=== PATIENT | female | born 1945 | race Caucasian/White ===

== ENCOUNTER 2017-10-20 08:00 | Day surgery (SDC) | payer BC ==
[~2017-10-20] VITALS: Ht 160 cm; Wt 91.2 kg
[~2017-10-20 08:00] MED LIST: ASCO500 PO; B Complex1 EAC2; CHOL10002 PO; Daily Multiple1 EACH PO; ENOX40I SC; Estrace Vagin42.5 GM; Estrace Vagin42.5 GM TOP; FISH OIL 1,0001 EAC1 PO; GABA100 PO; IBUP600 PO; METF500 PO; MOMENI; OXYC5 PO; PRAV20 PO; PROM25 PO; Pseudoephedrine30 MG PO; TRAM50 PO; Vitamin B Comple1 EA PO
== END 2017-10-20 10:16 | disposition home or self-care (01) ==
LOC: ORSCSDS 08:00
PROVIDERS: Surgery
PROC: 0DJD8ZZ Inspection of Lower Intestinal Tract, Via Natural or Artificial Opening Endoscopic (ICD-10-PCS; principal; 2017-10-20 09:15)
DX: Z12.11 Encounter for screening for malignant neoplasm of colon (principal); Z86.010 Personal history of colon polyps; I10 Essential (primary) hypertension; E78.5 Hyperlipidemia, unspecified; E11.9 Type 2 diabetes mellitus without complications; Z79.84 Long term (current) use of oral hypoglycemic drugs; Z79.899 Other long term (current) drug therapy
CPT/HCPCS: 82947; J7120

== ENCOUNTER 2023-03-14 09:37 | Day surgery (SDC) | payer OTHER ==
[~2023-03-14] VITALS: Ht 157.5 cm; Wt 78.2 kg
[~2023-03-14 09:37] MED LIST changes: +Lactated Ringer's 1,000 ML IV ONE
[2023-03-14] MEDS ORDERED: Clindamycin 900mg in D5W 50ML 50 ML IV ONE (10:05)
[2023-03-14] MEDS ORDERED: Vancomycin HCL 1,000 MG in NS 100 ML IV SCH (10:15)
[2023-03-14] MEDS ORDERED: ACET325 PO (10:16)
[2023-03-14] MEDS ORDERED: Lactated Ringer's 1,000 ML IV ONE (10:29)
--- NOTE | 2023-03-14 10:54 | NUR ---
03/14/23 1054 Samina Valladares SKIN TEST DONE ON R FOREARM. DUE TO SHELLFISH ALLERGY. WILL MONITOR FOR ANY REACTION.
[2023-03-14] MEDS ORDERED: propofoL 20 ML IV ONE (11:34)
[2023-03-14] MEDS ORDERED: FentaNYL Citrate 50 MCG/ML 2 ML Injection ONE (11:34)
[2023-03-14] MEDS ORDERED: Ondansetron HCl 2 MG / ML 2ML Vial ONE (11:47)
[2023-03-14] MEDS ORDERED: Dexamethasone Sod Phos 10 MG/ML 1ML VIAL ONE (11:47)
[2023-03-14] MEDS ORDERED: Glycopyrrolate 0.2 MG/ML 5ML VIAL ONE (11:55)
[2023-03-14] MEDS ORDERED: Phenylephrine HCl 100 MCG/ML-NS 10MLSYR (1MG/10ML) ONE (11:56)
[2023-03-14] MEDS ORDERED: Ropivacaine 0.5% HCl/Pf 5 MG/ML 20ML VIAL INFIL ONE (12:05)
--- NOTE | 2023-03-14 12:36 | NUR ---
03/14/23 1236 MIGUEL MENG AT BEDSIDE. O2 SAT 92% ON RA AT PRESENT
[2023-03-14 12:41] VITALS: BP 133/77
== END 2023-03-14 13:00 | disposition home or self-care (01) ==
LOC: ORSCSDS 09:37
PROVIDERS: Orthopaedic Surgery
PROC: 01N50ZZ Release Median Nerve, Open Approach (ICD-10-PCS; principal; 2023-03-14 11:15)
DX: G56.03 Carpal tunnel syndrome, bilateral upper limbs (principal); I10 Essential (primary) hypertension; E78.5 Hyperlipidemia, unspecified; E11.9 Type 2 diabetes mellitus without complications; K21.9 Gastro-esophageal reflux disease without esophagitis; Z79.84 Long term (current) use of oral hypoglycemic drugs; Z79.899 Other long term (current) drug therapy
CPT/HCPCS: 82947; J1100; J2371; J2405; J2704; J2795; J3010; J3370; J7120

== ENCOUNTER 2023-08-30 07:21 | Day surgery (SDC) | payer OTHER ==
[~2023-08-30] VITALS: Ht 157.5 cm; Wt 74.4 kg
[~2023-08-30 07:21] MED LIST changes: +ACET325 PO; +propofoL 40 ML IV ONE
[2023-08-30] MEDS ORDERED: Lactated Ringer's 1,000 ML IV ONE (08:25)
[2023-08-30] MEDS ORDERED: Ondansetron HCl 2 MG / ML 2ML Vial ONE (09:10)
[2023-08-30 09:34] VITALS: BP 118/61
== END 2023-08-30 09:34 | disposition home or self-care (01) ==
LOC: ORSCSDS 07:21
PROVIDERS: Surgery
PROC: 0DJD8ZZ Inspection of Lower Intestinal Tract, Via Natural or Artificial Opening Endoscopic (ICD-10-PCS; principal; 2023-08-30 08:45)
DX: Z12.11 Encounter for screening for malignant neoplasm of colon (principal); Z86.010 Personal history of colon polyps; E11.9 Type 2 diabetes mellitus without complications; Z79.84 Long term (current) use of oral hypoglycemic drugs; Z79.899 Other long term (current) drug therapy
CPT/HCPCS: 82947; J2405; J2704; J7120

== ENCOUNTER 2024-05-21 08:55 | Day surgery (SDC) | payer OTHER ==
[~2024-05-21] VITALS: Ht 157.5 cm; Wt 77.0 kg
[~2024-05-21 08:55] MED LIST changes: +Clindamycin 900mg in D5W 50ML 50 ML IV ONE; +Dexamethasone Sod Phos 10 MG/ML 1ML VIAL ONE; +FentaNYL Citrate 50 MCG/ML 2 ML Injection ONE; +Ondansetron HCl 2 MG / ML 2ML Vial ONE; +propofoL 20 ML IV ONE; -propofoL 40 ML IV ONE
[2024-05-21] MEDS ORDERED: Vancomycin HCL 1,000 MG in NS 250 ML IV SCH (09:00)
[2024-05-21] MEDS ORDERED: Lidocaine 1%-Epineph 1:100000 20 ML MDV ONE (09:02)
[2024-05-21] MEDS ORDERED: METF500C PO (09:24)
[2024-05-21] MEDS ORDERED: Lactated Ringer's 1,000 ML IV ONE (09:40)
--- NOTE | 2024-05-21 10:18 | NUR ---
05/21/24 1017 Graciela Bah VANCOMYCIN STARTED 1014
[2024-05-21] MEDS ORDERED: Lidocaine 1%-Epineph 1:200000 30 ML SDV ONE (10:33)
[2024-05-21] MEDS ORDERED: ePHEDrine Sulfate 50 MG/ML 1ML Injection ONE (11:03)
[2024-05-21] MEDS ORDERED: Bupivacaine 0.5% W/EPI 1:200000 SDV 30 ML Vial ONE (11:08)
[2024-05-21] MEDS ORDERED: Bupivacaine 0.5% W/EPI 1:200000 SDV 10ML INJ ONE (11:12)
[2024-05-21 11:46] VITALS: BP 125/65
--- NOTE | 2024-05-21 12:29 | NUR ---
05/21/24 Samina Sims AFTER PATIENT'S IV WAS TAKEN OUT AND PATIENT WAS GETTING DRESSED TO GO HOME, PATIENT STARTED HAVING NAUSEA. PATIENT HAD NOT HAD ANY N/V THROUGHOUT RECOVERY STAY UNTIL THIS TIME. PATIENT SITTING IN RECLINER WITH AT BEDSIDE. GAVE PATIENT ALCOHOL SWAB TO SMELL AND PT REPORTS THIS SEEMED TO HELP SOME.
[2024-05-21] MEDS ORDERED: Ondansetron 4 MG SoluTab ONE (12:37)
== END 2024-05-21 12:42 | disposition home or self-care (01) ==
LOC: ORSCSDS 08:55
PROVIDERS: Orthopaedic Surgery
PROC: 01N50ZZ Release Median Nerve, Open Approach (ICD-10-PCS; principal; 2024-05-21 10:30)
PROC: 0LN70ZZ Release Right Hand Tendon, Open Approach (ICD-10-PCS; principal; 2024-05-21 10:30)
DX: G56.01 Carpal tunnel syndrome, right upper limb (principal); M65.341 Trigger finger, right ring finger; M65.351 Trigger finger, right little finger; E11.9 Type 2 diabetes mellitus without complications; I10 Essential (primary) hypertension; E78.5 Hyperlipidemia, unspecified; E66.9 Obesity, unspecified; Z68.30 Body mass index [BMI] 30.0-30.9, adult; Z79.84 Long term (current) use of oral hypoglycemic drugs; Z79.899 Other long term (current) drug therapy
CPT/HCPCS: 82947; A9270; J1100; J2405; J2704; J3010; J3370; J7050; J7120